=== PATIENT | male | born 1945 | race Caucasian/White ===

== ENCOUNTER → 2017-06-17 | Outpatient (CLI) | payer OTHER ==
[~2017-06-17] MED LIST: MICARDIS80 MG; SYNTHROID150 MCG; ZIAC 10/6.25 MG1 TAB
== END | disposition home or self-care (01) ==
LOC: RAD 501 10:29
DX: M25.532 Pain in left wrist (principal)

== ENCOUNTER 2017-08-10 08:33 | Outpatient (CLI) | payer OTHER | END 2017-08-10 08:43 | disposition home or self-care (01) | LOC: RAD 08:33 | DX: J20.9 Acute bronchitis, unspecified (principal); M84.43 Pathological fracture, ulna and radius ==

== ENCOUNTER → 2017-08-14 12:52 | Outpatient (CLI) | payer OTHER | END | disposition home or self-care (01) | LOC: LAB 12:52 | DX: D50.9 Iron deficiency anemia, unspecified (principal) ==

== ENCOUNTER 2017-09-22 08:58 | Outpatient (CLI) | payer OTHER | END 2017-09-22 09:04 | disposition home or self-care (01) | LOC: TOM 08:58 | DX: M19.032 Primary osteoarthritis, left wrist (principal) ==

== ENCOUNTER 2017-09-22 10:17 | Outpatient (CLI) | payer OTHER | END 2017-09-22 10:19 | disposition home or self-care (01) | LOC: RAD 10:17 | DX: S52.92XA Unspecified fracture of left forearm, initial encounter for closed fracture (principal) ==

== ENCOUNTER 2018-01-25 08:21 | Day surgery (SDC) | payer OTHER ==
[~2018-01-25 08:21] MED LIST changes: +ASA81 MG PO; +LIPITOR20 MG PO; -SYNTHROID150 MCG; +SYNTHROID150 MCG PO; +UROXATRAL10 MG PO
== END 2018-01-25 16:20 | disposition home or self-care (01) ==
LOC: CIR.AMB
DX: S52.592D Other fractures of lower end of left radius, subsequent encounter for closed fracture with routine healing (principal); M65.842 Other synovitis and tenosynovitis, left hand; T84.84XD Pain due to internal orthopedic prosthetic devices, implants and grafts, subsequent encounter; X58.XXXD Exposure to other specified factors, subsequent encounter

== ENCOUNTER → 2020-07-26 08:30 | Outpatient (CLI) | payer OTHER | END | disposition home or self-care (01) | LOC: PPH VACUNA 08:30 | PROVIDERS: ATTEND Emergency Medicine Pediatric Emergency Medicine | DX: Z23 Encounter for immunization (principal) ==

== ENCOUNTER → 2020-08-16 | Outpatient (CLI) | payer OTHER | END | disposition home or self-care (01) | LOC: PPH VACUNA | PROVIDERS: ATTEND Emergency Medicine Pediatric Emergency Medicine | DX: Z23 Encounter for immunization (principal) ==

== ENCOUNTER → 2021-03-07 09:06 | Outpatient (CLI) | payer OTHER | END | disposition home or self-care (01) | LOC: LAB 09:06 | PROVIDERS: ATTEND Emergency Medicine Pediatric Emergency Medicine | DX: Z03.818 Encounter for observation for suspected exposure to other biological agents ruled out (principal) ==

== ENCOUNTER 2021-04-03 08:00 | Outpatient (CLI) | payer OTHER | END 2021-04-03 08:30 | disposition home or self-care (01) | LOC: PPH VACUNA 08:00 | DX: Z23 Encounter for immunization (principal) ==

== ENCOUNTER 2021-06-09 17:07 | Outpatient (CLI) | payer OTHER | END 2021-06-09 23:00 | disposition home or self-care (01) | LOC: RAD 17:07 | DX: J15.7 Pneumonia due to Mycoplasma pneumoniae (principal) ==

== ENCOUNTER 2022-07-08 16:49 | Outpatient (CLI) | payer OTHER | END 2022-07-08 16:52 | disposition home or self-care (01) | LOC: RAD 16:49 | DX: R07.9 Chest pain, unspecified (principal) ==

== ENCOUNTER 2022-07-27 07:21 | Outpatient (CLI) | payer OTHER | END 2022-07-27 08:00 | disposition home or self-care (01) | LOC: TOM 07:21 | PROVIDERS: ATTEND Internal Medicine Cardiovascular Disease | DX: J90 Pleural effusion, not elsewhere classified (principal) | CPT/HCPCS: 71260; Q9965 ==

== ENCOUNTER 2022-08-17 07:04 | Outpatient (CLI) | payer OTHER | END 2022-08-17 08:00 | disposition home or self-care (01) | LOC: MRI 07:04 | PROVIDERS: ATTEND Internal Medicine Cardiovascular Disease | DX: K72.00 Acute and subacute hepatic failure without coma (principal); L93.2 Other local lupus erythematosus; K70.30 Alcoholic cirrhosis of liver without ascites | CPT/HCPCS: 74183; 76700; Q9965; 74182 ==

== ENCOUNTER 2022-09-07 07:34 | Outpatient (CLI) | payer OTHER | END 2022-09-07 07:38 | disposition home or self-care (01) | LOC: NUCLEAR 07:34 | PROVIDERS: ATTEND Internal Medicine Hematology & Oncology | DX: C85.17 Unspecified B-cell lymphoma, spleen (principal); D61.810 Antineoplastic chemotherapy induced pancytopenia; R16.1 Splenomegaly, not elsewhere classified | CPT/HCPCS: 78816; A9552 ==

== ENCOUNTER 2022-10-19 08:23 | Outpatient (CLI) | payer OTHER | END 2022-10-19 08:24 | disposition home or self-care (01) | LOC: NUCLEAR 08:23 | PROVIDERS: ATTEND Internal Medicine Cardiovascular Disease | DX: I30.9 Acute pericarditis, unspecified (principal); I50.89 Other heart failure ==

== ENCOUNTER 2023-07-05 10:08 | Outpatient (CLI) | payer OTHER | END 2023-07-05 10:19 | disposition home or self-care (01) | LOC: RAD 10:08 | PROVIDERS: ATTEND Radiology Diagnostic Radiology | DX: J90 Pleural effusion, not elsewhere classified (principal) ==

== ENCOUNTER 2024-06-12 07:24 | Outpatient (CLI) | payer OTHER | END 2024-06-12 07:26 | disposition home or self-care (01) | LOC: NUCLEAR 07:24 | PROVIDERS: ATTEND Internal Medicine | DX: I50.30 Unspecified diastolic (congestive) heart failure (principal); I10 Essential (primary) hypertension ==

== ENCOUNTER → 2024-10-14 | Emergency (ER) | payer OTHER ==
[~2024-10-14] VITALS: Ht 182.9 cm; Wt 117.9 kg
== END | disposition left against medical advice (07) ==
LOC: ER 23:17
DX: Z53.21 Procedure and treatment not carried out due to patient leaving prior to being seen by health care provider (principal)

== ENCOUNTER → 2025-06-18 08:17 | Outpatient (CLI) | payer OTHER | END | disposition home or self-care (01) | LOC: NUCLEAR 08:00 | PROVIDERS: ATTEND Internal Medicine | DX: I50.30 Unspecified diastolic (congestive) heart failure (principal); I10 Essential (primary) hypertension ==